=== PATIENT | female | born 2000 | race African-American/Black ===

== ENCOUNTER 2019-12-10 21:10 | Emergency (ER) | payer MEDICAID ==
[~2019-12-10] VITALS: Ht 167.6 cm; Wt 54.8 kg
[2019-12-11] MEDS ORDERED: ACETAMINOPHEN 500MG TABLET PO ONE (01:45)
[2019-12-11 04:07] VITALS: BP 112/81
== END 2019-12-11 04:07 | disposition home or self-care (01) ==
LOC: ER 21:10
DX: O9A.212 Injury, poisoning and certain other consequences of external causes complicating pregnancy, second trimester (principal); O44.02 Complete placenta previa NOS or without hemorrhage, second trimester; Z3A.16 16 weeks gestation of pregnancy; Y08.89XA Assault by other specified means, initial encounter; Y93.89 Activity, other specified; Y92.89 Other specified places as the place of occurrence of the external cause; Y99.8 Other external cause status
CPT/HCPCS: 76805; 99284